=== PATIENT | female | born 2000 | race Caucasian/White ===

== ENCOUNTER 2018-06-30 21:06 | Emergency (ER) | payer OTHER | END 2018-07-01 00:11 | disposition home or self-care (01) | LOC: ED 21:06 | DX: B34.9 Viral infection, unspecified (principal) ==

== ENCOUNTER 2019-01-24 20:27 | Emergency (ER) | payer OTHER ==
[~2019-01-24] VITALS: Ht 170.2 cm; Wt 78.0 kg
[2019-01-24 20:51] VITALS: Ht 170.2 cm; Wt 78.0 kg
[2019-01-24 22:23] VITALS: BP 125/86
== END 2019-01-24 22:23 | disposition home or self-care (01) ==
LOC: ED 20:27
DX: L03.116 Cellulitis of left lower limb (principal); L03.115 Cellulitis of right lower limb